=== PATIENT | female | born 1995 | race Caucasian/White ===

== ENCOUNTER 2016-02-14 14:13 | Emergency (ER) | payer OTHER ==
[~2016-02-14] VITALS: Ht 172.7 cm; Wt 68.6 kg
[2016-02-14 14:18] VITALS: TEMP 36.7; Ht 172.7 cm; Wt 68.6 kg
--- NOTE | 2016-02-14 15:04 | DIAGNOSTIC IMAGING REPORT ---
ULTRASOUND RIGHT AXILLA NONVASCULAR CLINICAL HISTORY: Axillary swelling. COMPARISON STUDY: No priors. FINDINGS: Real-time, grayscale, and color flow sonography of the right axillary region is performed at the site of palpable concern. No sonographic abnormality is seen. No mass, fluid collection, or lymphadenopathy is identified. The regional vessels appear patent. IMPRESSION: Unremarkable sonographic assessment of the right axillary region at the site of interest. Electronically signed by: Cordell Champagne M.D. 02/14/2016 3:03 PM Dictated Date/Time: 02/14/2016 3:01 PM
[2016-02-14] MEDS ORDERED: BCPILLS PO (15:29)
[2016-02-14] MEDS ORDERED: AMOX875T PO (15:31)
--- NOTE | 2016-02-14 15:32 | EMERGENCY ROOM VISIT NOTE ---
History First contact with patient: 14:27 Chief Complaint: SWELLING TO EXTREMITY Stated Complaint: SWOLLEN LYMPH-NODE History of Present Illness The patient is a 20 year old female who presents to the Emergency Room with complaints of a lump in her right armpit that she has noticed since late November or early December. The patient reports that she had the flu at that time. She reports that the swelling has not gotten any larger or smaller. It is nontender. She has not noticed any redness in the region. She denies any prior history of axillary nodes, unusual breast lumps, cough or other skin lesions about the neck, chest, breast or shoulder. She has not had any further workup for the swelling, and presents to the emergency department today because she noticed it last night while putting on a shirt, and thought she should have it checked. Review of Systems 10 system review was performed and was negative except for pertinent positives and negatives as indicated in history of present illness Past Medical/Surgical History Medical Problems: (1) No significant past medical history Surgical Problems: (1) No history of previous surgery Family History Unremarkable Social History Smoking Status: Never Smoker Alcohol Use: occasionally Marital Status: single Occupation Status: [employer] student Current/Historical Medications Scheduled Amoxicillin & Pot Clavulanate (Augmentin 875-125 mg), 1 TAB PO BID Control Pills ( Control Pills), 1 TAB PO DAILY Physical Exam Vital Signs Date Time Temp Pulse Resp B/P Pulse Ox O2 Delivery O2 Flow Rate FiO2 02/14/16 14:18 36.7 75 20 121/75 99 Room Air Physical Exam CONSTITUTIONAL: Healthy and well nourished. Alert and oriented X 3 with positive affect. HEENT: Normocephalic, atraumatic. Pupils equal, round and reactive. NECK: Full active range of motion without discomfort. LYMPHATICS: No obvious cervical chain, supraclavicular or axillary adenopathy RESPIRATORY: Clear to auscultation bilaterally with no wheezing, crackles, rhonchi or stridor. CARDIOVASCULAR: Regular rate and rhythm with no murmurs, rubs or gallops. GASTROINTESTINAL: Bowel sounds present in all quadrants. MUSCULOSKELETAL: Full range of motion of all joints without discomfort. Patient has no discomfort with range of motion of the shoulder. INTEGUMENTARY: Examination shows fullness of the right anterior axillary region , or tail of the breast tissue. Further breast exam was deferred. No nodularity noted. No tenderness to palpation. NEUROLOGIC: No focal neurologic deficits noted. Medical Decision & Procedures ER Provider Diagnostic Interpretation: Axillary ultrasound was normal, with the following radiologist report: ULTRASOUND RIGHT AXILLA NONVASCULAR CLINICAL HISTORY: Axillary swelling. COMPARISON STUDY: No priors. FINDINGS: Real-time, grayscale, and color flow sonography of the right axillary region is performed at the site of palpable concern. No sonographic abnormality is seen. No mass, fluid collection, or lymphadenopathy is identified. The regional vessels appear patent. IMPRESSION: Unremarkable sonographic assessment of the right axillary region at the site of interest. ED Course Patient history and physical exam were performed. Nurse's notes were reviewed. Axillary ultrasound was normal. I did elect to treat the patient with Augmentin antibiotics. She was encouraged to follow-up with [facility] in one week for reevaluation. Return to the emergency department for any progressively worsening swelling, pain, fever or other concerning symptoms. The patient was happy with plan care, and voiced understanding of all discharge instructions. Medical Decision Impression Primary Impression: Right axillary swelling Departure Information Prescriptions Amoxicillin & Pot Clavulanate (Augmentin 875-125 mg) 1 Tab Tab 1 TAB PO BID for 10 Days, #20 TAB Prov: Charles Glass PA 02/14/16 Referrals No Doctor, Assigned (PCP) Patient Instructions A Signature Page, My [facility]
[2016-02-14 15:43] VITALS: BP 111/73; PULSE 81; O2SAT 97
== END 2016-02-14 15:45 | disposition home or self-care (01) ==
LOC: C.EDB 14:18 → C.EDD 15:45
DX: R22.9 Localized swelling, mass and lump, unspecified (principal)